=== PATIENT | female | born 1990 | race Two or more races ===

== ENCOUNTER 2017-09-19 16:32 | Emergency (ER) | payer OTHER ==
[~2017-09-19] VITALS: Ht 162.6 cm; Wt 98.7 kg
[2017-09-19 17:37] LABS: HEMATOCRIT 41.2 % (36.0-46.0); HEMOGLOBIN 13.8 G/DL (11.9-15.5); MCH 30.4 PG (29.0-34.0); MCHC 33.5 G/DL (30.0-36.0); MCV 90.7 FL (83-99); PLATELET COUNT 287 K/uL (156-360); RBC DIS.WIDTH-CV 13.3 % (11.8-14.6); RBC DIS.WIDTH-SD 44.5 % (39-53); RED BLOOD COUNT 4.54 M/uL (3.80-5.20); WHITE BLOOD COUNT 17.5 K/uL (4.1-10.2)
[2017-09-19 17:47] LABS: ALBUMIN 4.1 g/dL (3.2-4.8); CHLORIDE 101 mEq/L (99-109); POTASSIUM 4.4 mEq/L (3.7-5.4); SODIUM 139 mEq/L (136-147)
[2017-09-19 17:50] LABS: GLUCOSE 96 mg/dL (70-99); TOTAL PROTEIN 8.4 g/dL (6.4-8.3)
[2017-09-19 17:52] LABS: TOTAL BILIRUBIN 0.2 mg/dL (0.0-1.0)
[2017-09-19 17:53] LABS: CREATININE 0.8 mg/dL (0.6-1.3); SERUM ETHYL ALCOHOL < 10 mg/dL
[2017-09-19 17:54] LABS: ALKALINE PHOSPHATASE 65 IU/L (3-129)
[2017-09-19 17:55] LABS: AST (GOT) 15 IU/L (2-34); UREA NITROGEN (BUN) 7 mg/dL (9-23)
[2017-09-19 17:57] LABS: ACETAMINOPHEN (TYLENOL) < 10 mcg/mL (10-30); ALT (GPT) 16 IU/L (3-49); SALICYLATE < 5.0 MG/DL (15-30)
[2017-09-19 17:58] LABS: LIPASE 25 U/L (1.0-51.0)
[2017-09-19 18:02] LABS: GFR ESTIMATE (CALCULATED) > 59 mL/min/
[2017-09-19 18:04] LABS: QUANTITATIVE HCG < 4.0 MIU/ML
[2017-09-19 18:57] LABS: APPEARANCE CLEAR ((CLEAR)); BILIRUBIN NEGATIVE; BLOOD NEGATIVE; COLOR STRAW ((YELLOW)); GLUCOSE (STRIP) NEGATIVE; KETONES NEGATIVE; LEUKOCYTES NEGATIVE; NITRITE NEGATIVE; PROTEIN (STRIP) NEGATIVE; SPECIFIC GRAVITY 1.003 (1.000-1.030); UCUL ADDED? NO; UROBILINOGEN 0.2 MG/DL (0.2-1.0)
[2017-09-19 19:05] LABS: AMPHETAMINE NEGATIVE (500 ng/mL); BARBITURATES NEGATIVE (200 ng/mL); BENZODIAZEPINES NEGATIVE (150 ng/mL); BUPRENORPHINE NEGATIVE (10 ng/mL); COCAINE NEGATIVE (150 ng/mL); METHADONE NEGATIVE (200 ng/mL); METHAMPHETAMINE NEGATIVE (500 ng/mL); OPIATES (MORPHINE) NEGATIVE (100 ng/mL); OXYCODONE NEGATIVE (100 ng/mL); PHENCYCLIDINE NEGATIVE (25 ng/mL); PROPOXYPHENE NEGATIVE (300 ng/mL); THC CANNABINOIDS NEGATIVE (50 ng/mL); TRICYCLIC ANTIDEPRESSANTS NEGATIVE (300 ng/mL)
[2017-09-19] MEDS ORDERED: ZOFRAN4 MG PO (21:07)
[2017-09-19 21:37] VITALS: BP 117/82
== END 2017-09-19 21:38 | disposition home or self-care (01) ==
LOC: EME 16:32
PROVIDERS: Physician Assistant
DX: E86.0 Dehydration (principal); R11.2 Nausea with vomiting, unspecified; F20.9 Schizophrenia, unspecified; R62.50 Unspecified lack of expected normal physiological development in childhood; F17.200 Nicotine dependence, unspecified, uncomplicated
CPT/HCPCS: 71275; 74177; 80053; 81003; 83605; 83690; 84702; 85027; 87040; 93005; 99281; 99284; G0480; J2405; J7030